=== PATIENT | male | born 1970 | race Caucasian/White ===

== ENCOUNTER 2016-11-06 14:58 | Outpatient (RCR) | payer OTHER | END 2016-12-10 10:35 | disposition home or self-care (01) | LOC: PT 14:58 | DX: M75.81 Other shoulder lesions, right shoulder (principal); M75.01 Adhesive capsulitis of right shoulder ==

== ENCOUNTER → 2016-12-27 | Outpatient (CLI) | payer OTHER | END | disposition home or self-care (01) | LOC: EDSTATUS 13:02 → PT 14:49 | DX: Z47.89 Encounter for other orthopedic aftercare (principal); M75.21 Bicipital tendinitis, right shoulder ==

== ENCOUNTER 2017-04-04 11:00 | Outpatient (RCR) | payer OTHER | END 2017-04-10 | disposition home or self-care (01) | LOC: PT | DX: M75.21 Bicipital tendinitis, right shoulder (principal) ==

== ENCOUNTER 2022-09-18 18:56 | Emergency (ER) | payer OTHER ==
[~2022-09-18] VITALS: Ht 177.8 cm; Wt 100.4 kg
[2022-09-18 21:05] VITALS: BP 125/87
== END 2022-09-18 21:05 | disposition home or self-care (01) ==
LOC: ED 18:56
DX: S01.311A Laceration without foreign body of right ear, initial encounter (principal); Z23 Encounter for immunization; Z28.310 Unvaccinated for COVID-19; V86.95XA Unspecified occupant of 3- or 4- wheeled all-terrain vehicle (ATV) injured in nontraffic accident, initial encounter
CPT/HCPCS: 90715